=== PATIENT | male | born 1980 | race African-American/Black ===

== ENCOUNTER 2017-01-17 07:48 | Emergency (ER) | payer SELFPAY ==
[~2017-01-17] VITALS: Ht 177.8 cm; Wt 113.5 kg
[2017-01-17 07:51] VITALS: BP 175/105; PULSE 80; RESP 16; TEMP 98.2; O2SAT 100
[2017-01-17] MEDS ORDERED: ERYTOIN10 LEFT EYE (08:09)
[2017-01-17] MEDS ORDERED: IBUP800T23 PO (08:09)
--- NOTE | 2017-01-17 08:09 | PD ---
HPI Chief Complaint: Eye Problems/Injury Time Seen by Provider: 08:07 Travel History International Travel<30 days: No Contact w/Intl Traveler<30days: No Traveled to known affect area: No History of Present Illness HPI 36-year-old male presents to the emergency Department with complaint of left eye pain since the proximally 6:30 this morning. He sits with his eyes partially open and symptoms given his eyes causing pain. This is happened in the past but this time the patient has not gone away after flushing his eye. Denies dramatic injury. Reports blurry vision. Reports clear drainage. Reports photophobia. Denies fever, vomiting. Does not wear corrective lenses or contacts. Symptoms are moderate in severity. No known allergies. Has no medical complaints. No other modifying factors or associated signs and symptoms. PFSH Past Medical History Cardiovascular Problems: Yes Social History Tobacco Use: No Allergies-Medications (Allergen,Severity, Reaction): Coded Allergies: No Known Allergies (Unverified , 01/17/17) Reported Meds & Prescriptions Reported Meds & Active Scripts Active Ibuprofen 800 Mg Tab 800 Mg PO Q6HR PRN Erythromycin Opth Oint 5 Mg/Gm Oint 1 Applic LEFT EYE QID 7 Days Review of Systems Except as stated in HPI: all other systems reviewed are Neg Physical Exam Narrative GENERAL: Well-nourished, well-developed [- patient, in no acute distress SKIN: Warm and dry. HEAD: Atraumatic. Normocephalic. EYES: Pupils equal and round at 3 mm with brisk reaction. PERRLA. EOMI. Visual acuity left 20/70; right 20/50. Left lid eversion with no foreign body noted. Left eye with scleral erythema and without lid edema. No orbital tenderness, erythema or cellulitis. Left eye with photophobia. No consensual photophobia. No scleral icterus. Clear drainage. Mares lamp exam reveals corneal abrasion at the directly of the pupil and into the iris at approximately the 9 o'clock position. ENT: Mucosa pink and moist. Airway patent. NECK: Trachea midline. CARDIOVASCULAR: Regular rate. RESPIRATORY: No accessory muscle use. GASTROINTESTINAL: Obese. NEUROLOGICAL: Awake and alert. Oriented 3. No obvious cranial nerve deficits. Motor grossly within normal limits. Normal speech. PSYCHIATRIC: Appropriate mood and affect; insight and judgment normal. Data Data Last Documented VS Vital Signs Date Time Temp Pulse Resp B/P Pulse Ox O2 Delivery O2 Flow Rate FiO2 01/17/17 08:20 125/72 01/17/17 08:10 16 01/17/17 07:51 98.2 80 100 Orders Ibuprofen (Motrin) (01/17/17 08:15) Mandatory Outpatient Referral (01/17/17 08:12) MDM Medical Decision Making Medical Screen Exam Complete: Yes Emergency Medical Condition: Yes Medical Record Reviewed: Yes Differential Diagnosis Foreign body, corneal abrasion, corneal ulceration Narrative Course 36-year-old male with a corneal abrasion to his left eye. Ibuprofen administered in the ER. Mandatory outpatient referral ordered for ophthalmology follow-up. Erythromycin and ibuprofen prescribed for home. Instructed patient to follow up with ophthalmology today. Instructed patient to follow up with primary care provider. Patient verbalizes understanding and agreement with treatment plan. Patient is medically cleared and stable for discharge. Discussed reasons to return to the emergency department. Patient agrees with treatment plan. The patients vital signs are stable and the patient is stable for outpatient follow-up and treatment. Patient discharged home, stable and in no acute distress. Diagnosis Primary Impression: Corneal abrasion, left Qualified Code: S05.02XA - Abrasion of left cornea, initial encounter Referrals: Courtney Grimes MDcar worker helper Primary Care Physician Patient Instructions: Corneal Abrasion (ED), General Instructions Departure Forms: Tests/Procedures, Work Release Enter return to work date: Jan 21, 2017 Additional Instructions: Ibuprofen or Tylenol as directed and as needed to reduce pain Do not patch the eye Do not rub the eye Refrigerated eye drops as needed to reduce pain Cool compresses to the eye as needed to reduce pain Follow-up with ophthalmology 1-2 days Primary care provider Return to the emergency department immediately with worsening of symptoms Med/Other Pt SpecificInfo: Prescription(s) given Scripts Ibuprofen 800 Mg [id number] Mg PO Q6HR PRN (PAIN) #30 TAB Ref 0 Prov:Tri Thomas 01/17/17 Erythromycin Opth Oint 5 Mg/Gm Oint1 Applic LEFT EYE QID 7 Days Ref 0 Prov:Tri Thomas 01/17/17 Disposition: 01 DISCHARGE HOME Condition: Stable Tri Thomas Jan 17, 2017 08:09
[2017-01-17] MEDS ORDERED: IBUPROFEN 800 MG TAB PO ONE (08:15)
[2017-01-17 08:20] VITALS: BP 125/72
== END 2017-01-17 08:43 | disposition home or self-care (01) ==
LOC: NEPD 07:48
DX: S05.02XA Injury of conjunctiva and corneal abrasion without foreign body, left eye, initial encounter (principal); X58.XXXA Exposure to other specified factors, initial encounter
CPT/HCPCS: 99283